=== PATIENT | male | born 1990 | race African-American/Black ===

== ENCOUNTER 2018-03-24 11:54 | Emergency (ER) | payer MEDICAID ==
[~2018-03-24] VITALS: Ht 177.8 cm; Wt 80.0 kg
[2018-03-24 11:56] VITALS: BP 118/59
[2018-03-24] MEDS ORDERED: KETOROLAC 60MG/2ML VIAL IM ONE (12:45)
== END 2018-03-24 15:15 | disposition home or self-care (01) ==
LOC: ER 12:20
DX: L03.113 Cellulitis of right upper limb (principal); M54.41 Lumbago with sciatica, right side; M79.604 Pain in right leg; F12.10 Cannabis abuse, uncomplicated
CPT/HCPCS: 73130; 96372; 99284; J1885

== ENCOUNTER 2022-10-21 21:48 | Emergency (ER) | payer MEDICAID ==
[~2022-10-21] VITALS: Ht 177.8 cm; Wt 86.2 kg
[2022-10-21 22:31] VITALS: BP 116/67
== END 2022-10-22 01:32 | disposition left against medical advice (07) ==
LOC: ER 21:48
DX: Z53.21 Procedure and treatment not carried out due to patient leaving prior to being seen by health care provider (principal)
CPT/HCPCS: 99281

== ENCOUNTER 2023-10-22 08:51 | Emergency (ER) | payer MEDICAID, OTHER ==
[~2023-10-22] VITALS: Ht 177.8 cm; Wt 82.0 kg
[2023-10-22 09:14] VITALS: O2SAT 100
[2023-10-22] MEDS ORDERED: P50 MT (11:07)
[2023-10-22] MEDS ORDERED: IBUP-1525 MT (11:07)
[2023-10-22] MEDS ORDERED: TOPUD MT (11:07)
[2023-10-22] MEDS ORDERED: AMOX1TAB16 MT (11:07)
[2023-10-22 11:14] VITALS: BP 109/86; PULSE 67; RESP 19; TEMP 98
== END 2023-10-22 11:19 | disposition home or self-care (01) ==
LOC: ER 08:51
DX: J02.9 Acute pharyngitis, unspecified (principal); F12.10 Cannabis abuse, uncomplicated
CPT/HCPCS: 99281; 99283

== ENCOUNTER 2024-07-27 11:12 | Emergency (ER) | payer OTHER ==
[~2024-07-27] VITALS: Ht 177.8 cm; Wt 91.0 kg
[~2024-07-27 11:12] MED LIST: AMOX1TAB16 MT; IBUP-1525 MT; P50 MT; TOPUD MT
[2024-07-27 11:26] VITALS: BP 138/87; PULSE 85; RESP 16; TEMP 99.6; O2SAT 99
[2024-07-27] MEDS ORDERED: NAPR-1176 MT (12:51)
[2024-07-27] MEDS: KETOROLAC 15MG/ML VIAL IM ONE (13:26)
== END 2024-07-27 13:28 | disposition home or self-care (01) ==
LOC: ER 11:25
DX: S62.601A Fracture of unspecified phalanx of left index finger, initial encounter for closed fracture (principal); F12.90 Cannabis use, unspecified, uncomplicated; Z79.1 Long term (current) use of non-steroidal anti-inflammatories (NSAID); Y04.0XXA Assault by unarmed brawl or fight, initial encounter; Y93.89 Activity, other specified; Y92.89 Other specified places as the place of occurrence of the external cause; Y99.8 Other external cause status
CPT/HCPCS: 29125; 73130; 99283